=== PATIENT | female | born 1985 | race Caucasian/White ===

== ENCOUNTER → 2023-06-24 13:28 | Outpatient (REF) | payer BC, SELFPAY ==
[2023-06-27 15:57] LABS: FIT-Fecal Occult Blood Interp Negative
== END ==
LOC: REG 13:28
PROVIDERS: ATTENDING PHYSICIAN Internal Medicine
DX: D50.9 Iron deficiency anemia, unspecified (principal); R19.4 Change in bowel habit
CPT/HCPCS: 83520

== ENCOUNTER → 2023-07-08 07:10 | Outpatient (REF) | payer BC, SELFPAY ==
[2023-07-08 07:37] LABS: Hematocrit 35.7 % (37.0-47.0); Hemoglobin 11.6 g/dL (12.0-16.0); Mean Corp Hgb Conc. 32.5 g/dL (33.0-37.0); Mean Corpuscular Hgb 25.6 pg (27.0-31.0); Mean Corpuscular Volume 78.6 fL (81.0-99.0); Mean Platelet Volume 9.3 fL (7.4-10.4); Platelet Count 283 10^3/uL (130-400); Red Blood Cell Count 4.54 10^6/uL (4.20-5.40); Red Cell Dist. Width 14.6 % (11.5-14.5)
[2023-07-08 07:46] LABS: INR 1.07; PT 13.7 Sec (11.4-14.6)
[2023-07-08 08:48] LABS: Blood Urea Nitrogen 13 mg/dl (7-17); Calcium 9.6 mg/dl (8.4-10.2); Carbon Dioxide 25 mmol/L (22-30); Chloride 106 mmol/L (98-107); Glucose 91 mg/dl (70-99); Iron 89 ug/dl (37-170); Potassium 4.6 mmol/L (3.5-5.1); Sodium 137 mmol/L (135-145); eGFR > 60.00
[2023-07-08 08:56] LABS: Beta HCG Quantitative < 2.39 mIU/ml
[2023-07-08 08:59] LABS: Percent Saturation 18 % (20-50); Total Iron Binding Capacity 471 ug/dl (265-497)
[2023-07-08 09:20] LABS: Ferritin 5.5 ng/ml (6.24-137)
== END ==
LOC: REG 07:10
PROVIDERS: ATTENDING PHYSICIAN Obstetrics & Gynecology; FAMILY PHYSICIAN Internal Medicine
DX: N92.0 Excessive and frequent menstruation with regular cycle (principal)
CPT/HCPCS: 36415; 76830; 76856; 80048; 82728; 83540; 83550; 84702; 85027; 85610; 86850; 86900; 86901

== ENCOUNTER 2023-07-28 06:32 | Day surgery (SDC) | payer BC, SELFPAY ==
[2023-07-28 09:15] VITALS: BP 122/80
[2023-07-28 09:20] VITALS: BMI 30.1
[2023-07-28 09:41] VITALS: BMI 30.1
[2023-07-28] MEDS: NORMOSOL-R 1000 IV (09:45)
[2023-07-28 11:02] LABS: HCG, Serum Qualitative Screen Negative
--- NOTE | 2023-07-28 11:03 | W.IMMPOSTOP ---
Surgical Immed Post Op Note
-
Primary Surgeon: Rosie Villalpando DO
Assisting Surgeon: n/a
Pre-op Diagnosis: Menorrhagia
Post-op Diagnosis: same
Procedure Performed: Hysteroscopy D&C
Anesthesia Type: general LMA Dr. Champion
Specimen / Cultures: 1. endocervical curettings 2. endodmetrial cureetings
Estimated Blood Loss: <2ml
Fluid deficit: 70ml
Complications: none
Operative Findings: Uterus sounded to 11 cm, bilateral ostia seen. No evidence of polyp or mass.
Counts correct.
Stable to recovery.
[2023-07-28 11:09] VITALS: BP 109/47; BP 122/80
[2023-07-28 11:15] VITALS: BP 97/67
[2023-07-28 12:07] VITALS: BP 107/66
[2023-07-28 12:32] VITALS: BP 103/65
[2023-07-28 13:06] VITALS: BP 104/61
== END 2023-07-28 13:20 | disposition home or self-care (01) ==
LOC: SDS 06:32
PROVIDERS: ATTENDING PHYSICIAN Obstetrics & Gynecology
DX: N92.0 Excessive and frequent menstruation with regular cycle (principal); N72 Inflammatory disease of cervix uteri
CPT/HCPCS: 58558; 88305; 84703

== ENCOUNTER → 2023-12-12 06:48 | Outpatient (REF) | payer BC, SELFPAY ==
[2023-12-12 08:20] LABS: % Basophils 0.8 % (0-2); % Eosinophils 3.2 % (0-6); % Immature Granulocytes 0.3 % (0-0.5); % Monocytes 7.8 % (1.7-9.3); % Neutrophils 40.9 % (42.2-75.2); Absolute Basophils 0.1 10^3/uL (0-0.2); Absolute Eosinophils 0.2 10^3/uL (0-0.7); Absolute Monocytes 0.5 10^3/uL (0.1-0.6); Absolute Neutrophils 2.6 10^3/uL (1.4-6.5); Hematocrit 35.6 % (37.0-47.0); Hemoglobin 11.7 g/dL (12.0-16.0); Mean Corp Hgb Conc. 32.9 g/dL (33.0-37.0); Mean Corpuscular Hgb 25.4 pg (27.0-31.0); Mean Corpuscular Volume 77.4 fL (81.0-99.0); Mean Platelet Volume 9.3 fL (7.4-10.4); Nucleated Red Blood Cells % 0 %; Platelet Count 347 10^3/uL (130-400); White Blood Cell Count 6.3 10^3/uL (4.8-10.8)
[2023-12-12 09:10] LABS: TSH Reflex To Free T4 2.87 uIU/ml (0.47-4.68)
[2023-12-12 09:41] LABS: ALT (SGPT) 29 U/L (0-35); AST (SGOT) 29 U/L (14-36); Albumin 4.5 g/dl (3.5-5.0); Alkaline Phosphatase 76 U/L (38-126); Blood Urea Nitrogen 11 mg/dl (7-17); Calcium 9.8 mg/dl (8.4-10.2); Carbon Dioxide 22 mmol/L (22-30); Chloride 104 mmol/L (98-107); Glucose 87 mg/dl (70-99); HDL Cholesterol 55 mg/dl; Iron 69 ug/dl (37-170); LDL Cholesterol, Calculated 165 mg/dl; Potassium 4.8 mmol/L (3.5-5.1); Sodium 140 mmol/L (135-145); Total Cholesterol 266 mg/dl (50-199); Total Protein 7.3 g/dl (6.3-8.2); Triglyceride 234 mg/dl (10-149); Very Low Density Lipoprotein 46 mg/dl (0-30); eGFR > 60.00
[2023-12-12 14:58] LABS: Ferritin 6.9 ng/ml (6.24-137)
== END ==
LOC: REG 06:48
PROVIDERS: ATTENDING PHYSICIAN Internal Medicine
DX: E78.2 Mixed hyperlipidemia (principal); Z00.00 Encounter for general adult medical examination without abnormal findings; Z79.899 Other long term (current) drug therapy; E61.1 Iron deficiency; D50.9 Iron deficiency anemia, unspecified; R53.82 Chronic fatigue, unspecified
CPT/HCPCS: 36415; 80053; 80061; 82728; 83540; 84443; 85025

== ENCOUNTER → 2024-02-03 06:19 | Day surgery (SDC) | payer BC, SELFPAY | LOC: GI 06:19 | PROVIDERS: ATTENDING PHYSICIAN Internal Medicine Gastroenterology | DX: D50.9 Iron deficiency anemia, unspecified (principal); K64.8 Other hemorrhoids; K44.9 Diaphragmatic hernia without obstruction or gangrene; K63.9 Disease of intestine, unspecified | CPT/HCPCS: 45378; 43239; 88305; 88342 ==

== ENCOUNTER → 2024-02-07 16:32 | Outpatient (REF) | payer BC, SELFPAY ==
[2024-02-08 13:03] LABS: tTG IgA Antibody 2.1 EU/ml (0-19)
[2024-02-09 06:37] LABS: IgA 70 mg/dl (70-400)
== END ==
LOC: REG 16:32
PROVIDERS: ATTENDING PHYSICIAN Internal Medicine Gastroenterology; FAMILY PHYSICIAN Internal Medicine
DX: D50.0 Iron deficiency anemia secondary to blood loss (chronic) (principal)
CPT/HCPCS: 36415; 82784; 83516

== ENCOUNTER → 2024-02-09 17:15 | Outpatient (REF) | payer BC, SELFPAY | LOC: CLAB 17:15 | PROVIDERS: ATTENDING PHYSICIAN Physician Assistant Medical | DX: R39.9 Unspecified symptoms and signs involving the genitourinary system (principal) | CPT/HCPCS: 87077; 87086 ==

== ENCOUNTER → 2024-02-14 15:33 | Outpatient (REF) | payer BC, SELFPAY | LOC: WDC 15:33 | PROVIDERS: ATTENDING PHYSICIAN Obstetrics & Gynecology; FAMILY PHYSICIAN Internal Medicine | DX: Z12.31 Encounter for screening mammogram for malignant neoplasm of breast (principal) | CPT/HCPCS: 77063; 77067 ==

== ENCOUNTER → 2024-12-18 06:47 | Outpatient (REF) | payer BC, SELFPAY ==
[2024-12-18 08:38] LABS: Hematocrit 35.7 % (37.0-47.0); Hemoglobin 11.6 g/dL (12.0-16.0); Mean Corp Hgb Conc. 32.5 g/dL (33.0-37.0); Mean Corpuscular Volume 80.8 fL (81.0-99.0); Nucleated Red Blood Cells % 0 %; Platelet Count 293 10^3/uL (130-400); Red Cell Dist. Width 14.3 % (11.5-14.5)
[2024-12-18 09:24] LABS: ALT (SGPT) 19 U/L (0-35); AST (SGOT) 22 U/L (14-36); Albumin 4.3 g/dl (3.5-5.0); Alkaline Phosphatase 64 U/L (38-126); Blood Urea Nitrogen 12 mg/dl (7-17); Calcium 9.5 mg/dl (8.4-10.2); Carbon Dioxide 23 mmol/L (22-30); Chloride 109 mmol/L (98-107); Glucose 94 mg/dl (70-99); HDL Cholesterol 62 mg/dl; LDL Cholesterol, Calculated 145 mg/dl; Potassium 4.6 mmol/L (3.5-5.1); Sodium 137 mmol/L (135-145); Total Protein 7.3 g/dl (6.3-8.2); Very Low Density Lipoprotein 25 mg/dl (0-30); eGFR > 60.00
== END ==
LOC: REG 06:47
PROVIDERS: ATTENDING PHYSICIAN Internal Medicine
DX: Z00.00 Encounter for general adult medical examination without abnormal findings (principal)
CPT/HCPCS: 36415; 80053; 80061; 84443; 85025

== ENCOUNTER → 2024-12-31 16:16 | Outpatient (REF) | payer BC, SELFPAY ==
[2025-01-04 17:02] LABS: HPV, High Risk Not Detected; HPV, High Risk Source Cervical
== END ==
LOC: CPAP 16:16
PROVIDERS: ATTENDING PHYSICIAN Obstetrics & Gynecology
DX: Z01.419 Encounter for gynecological examination (general) (routine) without abnormal findings (principal); Z11.51 Encounter for screening for human papillomavirus (HPV)
CPT/HCPCS: 87624; G0123

== ENCOUNTER → 2025-03-04 08:43 | Outpatient (REF) | payer BC, SELFPAY | LOC: WDC 08:43 | PROVIDERS: ATTENDING PHYSICIAN Obstetrics & Gynecology; FAMILY PHYSICIAN Internal Medicine | DX: Z12.31 Encounter for screening mammogram for malignant neoplasm of breast (principal) | CPT/HCPCS: 77063; 77067 ==